=== PATIENT | female | born 1990 | race Caucasian/White ===

== ENCOUNTER 2017-11-20 20:08 | Emergency (ER) | payer OTHER, SELFPAY ==
[2017-11-20] MEDS ORDERED: NA CHLORIDE 0.9% 1,000 ML ONE (20:51)
[2017-11-20 20:59] LABS: Absolute Lymphocytes (CBC) 3.6 K/uL (0.7-4.9); Absolute Monocytes 0.8 K/uL (0.1-1.3); Absolute Neutrophil 11.7 K/uL (1.8-8.0); Basophils % 0.2 % (0-1.3); Eosinophils % 0.5 % (0-4.4); Hematocrit 40.7 % (36.0-45.0); Lymphocytes % 22.1 % (15.3-44.8); MCH 30.3 pg (27.0-35.0); MCV 87.3 fL (80-100); Monocytes % 4.8 % (3.3-12.3); RBC Red Blood Cell Count 4.66 M/uL (3.86-4.86)
[2017-11-20 21:07] LABS: BUN Blood Urea Nitrogen 9 mg/dL (6-20); Bicarbonate 26 mEq/L (21-31); Glucose Level 114 mg/dL (65-120); Potassium 3.5 mEq/L (3.6-5.0); Sodium Level 134 mEq/L (135-145)
--- NOTE | 2017-11-20 21:40 | RAD REPORT ---
EXAM DESCRIPTION: US - Transvaginal OB - 11/20/2017 9:25 pm CLINICAL HISTORY: Abdominal pain, abdominal cramping, history of positive COMPARISON: None. FINDINGS: Uterus measures 9.9 x 4.9 x 6.8 cm. No abnormality of the myometrium. No gestational sac o r sac remnant within the endometrial cavity. No hematoma, mass, polyp or other endometrial focal find ing. Both ovaries are identified and normal in size. No suspicious ovarian or adnexal finding. No free flu id. IMPRESSION: No intrauterine gestation and no focal abnormality within the endometrial cavity. No adnexal mass to suspect ectopic . Correlation can be made with serial beta HCG findings with follow up sonography performed if there is evidence for ongoing .
[2017-11-20] MEDS ORDERED: METHYLERGONOVINE 0.2 MG TAB PO ONE (22:01)
--- NOTE | 2017-11-20 22:04 | ER ---
Nurse's Notes [facility] Name: Raj Dean Age: 27 yrs Sex: Female : 1990 Arrival Date: 11/20/2017 Time: 20:09 Bed 7 Private MD: Juan M Nj P Diagnosis: Complete or unspecified spontaneous without complication Presentation: 11/20 20:31 Presenting complaint: Patient states: she is 11 weeks has been spotting a few bb days saw Dr Chopra today but now cramping is worse and she is bleeding large clots. Transition of care: patient was not received from another setting of care. Onset of symptoms was November 20, 2017. Initial Sepsis Screen: Does the patient meet any 2 criteria? No. Patient's initial sepsis screen is negative. Does the patient have a suspected source of infection? No. Patient's initial sepsis screen is negative. Care prior to arrival: None. 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 - Social history:: Smoking status: Patient/guardian denies using tobacco, Patient/guardian denies using alcohol, street drugs. Screenin:06 Abuse screen: Denies threats or abuse. Denies injuries from another. Nutritional lp1 screening: No deficits noted. Tuberculosis screening: No symptoms or risk factors identified. Fall Risk None identified. Assessment: 21:45 General: Appears uncomfortable, well developed, Behavior is anxious, crying. Pain: lp1 Complains of pain in suprapubic area Pain currently is 10 out of 10 on a pain scale. Quality of pain is described as crampy, Pain began gradually, Is intermittent, Noted to be crying, grimacing. Neuro: Level of Consciousness is awake, alert, obeys commands, Oriented to person, place, time, situation. Cardiovascular: Patient's skin is warm and dry. Respiratory: Airway is patent Respiratory effort is even, Respiratory pattern is regular, Breath sounds are clear bilaterally. GI: Abdomen is non-distended, Bowel sounds present X 4 quads. Abdomen is tender to palpation in suprapubic area Reports cramping. : Reports vaginal bleeding that is bright red, with clots, heavy flow. EENT: No signs and/or symptoms were reported regarding the EENT system. Derm: Skin is pink, warm \T\ dry. Musculoskeletal: Circulation, motion, and sensation intact. 22:30 Reassessment: Patient is alert, oriented x 3, equal unlabored respirations, skin lp1 warm/dry/pink. Patient states feeling better. Patient states symptoms have improved. Vital Signs: 20:33 BP 80 / 40; Pulse 112; Resp 20 S; Temp 98.6(O); Pulse Ox 100% on R/A; Weight 90.72 kg bb (R); Height 5 ft. 9 in. (175.26 cm) (R); Pain 8/10; 20:45 BP 106 / 72; Pulse 94; Resp 19; Pulse Ox 98% on R/A; Pain 10/10; lp1 22:00 BP 98 / 61; Pulse 79; Resp 18; Pulse Ox 100% on R/A; lp1 22:30 BP 130 / 53; Pulse 84; Resp 18; Pulse Ox 99% on R/A; Pain 2/10; lp1 20:33 Body Mass Index 29.53 (90.72 kg, 175.26 cm) bb ED Course: 20:09 Patient arrived in ED. am2 20:10 Juan M Nj MD is Private Physician. am2 20:32 Triage completed. bb 20:33 Arm band placed on Patient placed in an exam room, on a stretcher, on pulse oximetry. bb Family accompanied patient. 20:45 Patient has correct armband on for positive identification. Placed in gown. Bed in low lp1 position. Call light in reach. material reprocessing associate on. Pulse ox on. NIBP on. 20:45 Inserted saline lock: 20 gauge in right antecubital area, using aseptic technique. lp1 Blood collected. 20:49 Jose Eduardo Kidd MD is Attending Physician. 20:59 Linntete Deng FNP-C is [facility]. snw 21:05 Eboni Corbin, RN is Primary Nurse. lp1 21:25 US Transvaginal Ob In Process Unspecified. EDMS 21:25 Ultrasound completed. Patient tolerated well. cy 21:45 Assist provider with pelvic exam: Set up pelvic tray. Performed by Linnette Deng lp1 TERRY Patient tolerated well. 22:03 Juan M Nj MD is Referral Physician. snw 22:45 IV discontinued, No redness/swelling at site. Pressure dressing applied. lp1 Administered Medications: 20:50 Drug: NS 0.9% 1000 ml Route: IV; Rate: 1 bolus; Site: right antecubital; lp1 22:14 Follow up: IV Status: Completed infusion lp1 22:14 Drug: METHERgine 0.2 mg Route: PO; lp1 22:45 Follow up: Response: No adverse reaction lp1 Outcome: 22:04 Discharge ordered by . snw 23:01 Discharged to home via wheelchair, with family. lp1 23:01 Condition: good 23:01 Discharge instructions given to patient, Instructed on discharge instructions, follow up and referral plans. medication usage, Demonstrated understanding of instructions, follow-up care, medications, Prescriptions given X 1. 23:01 Patient left the ED. lp1 Signatures: Dispatcher [employer] EDFL Linnette Deng FNP-C FNP-Csnw Yolande Smart, JOSE GARCIA bb Eboni Corbin, RN RN lp1 Brigida Pantoja am2 Jose Eduardo Kidd MD MD gs Yong, Chheannith
--- NOTE | 2017-11-20 22:04 | EDPHYS ---
Physician Documentation [facility] Name: Raj Dean Age: 27 yrs Sex: Female : 1990 Arrival Date: 11/20/2017 Time: 20:09 Bed 7 Private MD: Juan M Nj P ED Physician Kidd Jose Eduardo HPI: 11/20 21:04 This 27 yrs old Female presents to ER via Wheelchair with complaints of snw Abdominal Cramping, Abdominal Pain, Vaginal Bleeding, + Preg <12wks. 21:04 The patient presents with vaginal bleeding that is heavy, with clots. Onset: The snw symptoms/episode began/occurred gradually, and became worse just prior to arrival. Associated signs and symptoms: Pertinent positives: cramping, vaginal bleeding. Severity of symptoms: At their worst the symptoms were moderate, severe. The patient has not experienced similar symptoms in the past. The patient has been recently seen by a physician: Dr. Nj earlier today. 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 - Social history:: Smoking status: Patient/guardian denies using tobacco, Patient/guardian denies using alcohol, street drugs. ROS: 21:03 Constitutional: Negative for fever, chills, and weight loss, Eyes: Negative for injury, snw pain, redness, and discharge, ENT: Negative for injury, pain, and discharge, Neck: Negative for injury, pain, and swelling, Cardiovascular: Negative for chest pain, palpitations, and edema, Respiratory: Negative for shortness of breath, cough, wheezing, and pleuritic chest pain, Abdomen/GI: Negative for abdominal pain, nausea, vomiting, diarrhea, and constipation, Back: Negative for injury and pain, MS/Extremity: Negative for injury and deformity, Skin: Negative for injury, rash, and discoloration, Neuro: Negative for headache, weakness, numbness, tingling, and seizure. 21:03 : Positive for vaginal bleeding, cramping, pt 11 wks . Started progesterone two days ago for spotting and low levels. . Exam: 20:59 Constitutional: This is a well developed, well nourished patient who is awake, alert, snw and in no acute distress. Head/Face: Normocephalic, atraumatic. Eyes: Pupils equal round and reactive to light, extra-ocular motions intact. Lids and lashes normal. Conjunctiva and sclera are non-icteric and not injected. Cornea within normal limits. Periorbital areas with no swelling, redness, or edema. ENT: Nares patent. No nasal discharge, no septal abnormalities noted. Tympanic membranes are normal and external auditory canals are clear. Oropharynx with no redness, swelling, or masses, exudates, or evidence of obstruction, uvula midline. Mucous membranes moist. Neck: Trachea midline, no thyromegaly or masses palpated, and no cervical lymphadenopathy. Supple, full range of motion without nuchal rigidity, or vertebral point tenderness. No Meningismus. Chest/axilla: Normal chest wall appearance and motion. Nontender with no deformity. No lesions are appreciated. 20:59 Respiratory: Lungs have equal breath sounds bilaterally, clear to auscultation and percussion. No rales, rhonchi or wheezes noted. No increased work of breathing, no retractions or nasal flaring. Abdomen/GI: Soft, non-tender, with normal bowel sounds. No distension or tympany. No guarding or rebound. No evidence of tenderness throughout. Back: No spinal tenderness. No costovertebral tenderness. Full range of motion. Pelvic Exam: Normal external genitalia. Speculum exam with open cervical os, bleeding noted. Severe cramping. Products of conception expressed. Bleeding slowed. Pt states pain resolved. Skin: Warm, dry with normal turgor. Normal color with no rashes, no lesions, and no evidence of cellulitis. MS/ Extremity: Pulses equal, no cyanosis. Neurovascular intact. Full, normal range of motion. Neuro: Awake and alert, GCS 15, oriented to person, place, time, and situation. Cranial nerves II-XII grossly intact. Motor strength 5/5 in all extremities. Sensory grossly intact. Cerebellar exam normal. Normal gait. 20:59 Cardiovascular: Rate: tachycardic. Vital Signs: 20:33 BP 80 / 40; Pulse 112; Resp 20 S; Temp 98.6(O); Pulse Ox 100% on R/A; Weight 90.72 kg bb (R); Height 5 ft. 9 in. (175.26 cm) (R); Pain 8/10; 20:45 BP 106 / 72; Pulse 94; Resp 19; Pulse Ox 98% on R/A; Pain 10/10; lp1 22:00 BP 98 / 61; Pulse 79; Resp 18; Pulse Ox 100% on R/A; lp1 22:30 BP 130 / 53; Pulse 84; Resp 18; Pulse Ox 99% on R/A; Pain 2/10; lp1 20:33 Body Mass Index 29.53 (90.72 kg, 175.26 cm) bb MDM: 20:59 Patient medically screened. snw 22:07 Data reviewed: vital signs, nurses notes. Data interpreted: Pulse oximetry: on room air snw is 98 %. Counseling: I had a detailed discussion with the patient and/or guardian regarding: the historical points, exam findings, and any diagnostic results supporting the discharge/admit diagnosis, lab results, radiology results, the need for outpatient follow up, to return to the emergency department if symptoms worsen or persist or if there are any questions or concerns that arise at home. Special discussion: Based on the patient's Hx, exam, and Dx evaluation, there is no indication for emergent surgery or inpatient Tx. It is understood by the patient/guardian that if the Sx's persist or worsen they need to return immediately for re-evaluation. Based on the history and exam findings, there is no indication for further emergent testing or inpatient evaluation. I discussed with the patient/guardian the need to see the OB Gyne specialist for further evaluation of the symptoms. 11/20 20:37 Order name: Quantitative Hcg; Complete Time: 21:47 snw 11/20 20:37 Order name: Basic Metabolic Panel; Complete Time: 21:47 snw 11/20 20:37 Order name: CBC with Diff; Complete Time: 21:01 snw 11/20 20:37 Order name: TS; Complete Time: 22:02 snw 11/20 21:02 Order name: US Transvaginal Ob; Complete Time: 21:47 snw 11/20 20:37 Order name: IV Saline Lock; Complete Time: 20:50 snw 11/20 20:37 Order name: Labs collected and sent; Complete Time: 20:50 snw 11/20 20:37 Order name: NPO; Complete Time: 20:50 snw Administered Medications: 20:50 Drug: NS 0.9% 1000 ml Route: IV; Rate: 1 bolus; Site: right antecubital; lp1 22:14 Follow up: IV Status: Completed infusion lp1 22:14 Drug: METHERgine 0.2 mg Route: PO; lp1 22:45 Follow up: Response: No adverse reaction lp1 Disposition: 11/21 03:02 Co-signature as Attending Physician, Jose Eduardo Kidd MD. Disposition: 11/20/17 22:04 Discharged to Home. Impression: Complete or unspecified spontaneous without complication. - Condition is Stable. - Discharge Instructions: Miscarriage. - Prescriptions for Methergine 0.2 mg Oral tablet - take 1 tablet by ORAL route every 6 hours; 4 tablet. - Medication Reconciliation Form, Thank You Letter, Antibiotic Education, Prescription Opioid Use form. - Follow up: Juan M Nj MD; When: as scheduled; Reason: Recheck today's complaints, Continuance of care, Re-evaluation by your physician. Follow up: Emergency Department; When: As needed; Reason: Worsening of condition. Signatures: Dispatcher [employer] EDMS Linnette Deng, LICENSED ARCHITECT-C LICENSED ARCHITECT-Csnw Yolande Smart RN RN bb Eboni Corbin RN RN 1 Jose Eduardo Kidd MD MD Corrections: (The following items were deleted from the chart) 11/20 21:06 20:37 Misc. Order ordered. [facility] lp1 22:14 20:37 Urine Dipstick-Ancillary ordered. snw lp1
[2017-11-20 23:10] VITALS: TEMP 98.6
[2017-11-20 23:13] VITALS: BP 130/53; O2SAT 99
== END 2017-11-20 23:01 | disposition home or self-care (01) ==
LOC: ER 20:08
DX: O03.9 Complete or unspecified spontaneous abortion without complication (principal)
CPT/HCPCS: 36415; 76817; 80048; 84702; 85025; 86850; 86900; 86901; 88305; 96360; 99285; J7030

== ENCOUNTER 2018-11-05 19:08 | Emergency (ER) | payer OTHER ==
--- NOTE | 2018-11-05 19:48 | ER ---
Nurse's Notes [facility] Name: Raj Dean Age: 28 yrs Sex: Female : 1990 Arrival Date: 11/05/2018 Time: 19:13 Bed 12 Private MD: Diagnosis: Obsessive-compulsive disorder;Insomnia Presentation: 11/05 19:40 Presenting complaint: Patient states: "I had a very bad panic attach. so I drove around [facility] today and nothing really is seeming to help.". Transition of care: patient was not received from another setting of care. Onset of symptoms was November 05, 2018. Risk Assessment: Do you want to hurt yourself or someone else? Patient reports no desire to harm self or others. Initial Sepsis Screen: Does the patient meet any 2 criteria? No. Patient's initial sepsis screen is negative. Does the patient have a suspected source of infection? No. Patient's initial sepsis screen is negative. Care prior to arrival: None. 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 - Social history:: Smoking status: Patient uses tobacco products, denies chronic smoking, but will smoke occasionally. - Ebola Screening: : Patient negative for fever greater than or equal to 101.5 degrees Fahrenheit, and additional compatible Ebola Virus Disease symptoms. Screenin:10 Abuse screen: Denies threats or abuse. Nutritional screening: No deficits noted. fc Tuberculosis screening: No symptoms or risk factors identified. Fall Risk None identified. Assessment: 20:00 General: Appears comfortable, obese, Behavior is calm, cooperative, appropriate for age. Pain: Denies pain. Neuro: Level of Consciousness is awake, alert, obeys commands, Oriented to person, place, time, situation, Appropriate for age Reports states that she is just very anxious. Cardiovascular: No deficits noted. Respiratory: No deficits noted. GI: No deficits noted. : No deficits noted. EENT: No deficits noted. Derm: Skin is pink, warm \\T\\ dry. Musculoskeletal: Circulation, motion, and sensation intact. Capillary refill < 3 seconds, Range of motion: intact in all extremities. Vital Signs: 19:43 BP 112 / 68; Pulse 72; Resp 18 S; Temp 99.6(TE); Pulse Ox 99% on R/A; Weight 90.72 kg jd3 (R); Height 5 ft. 9 in. (175.26 cm) (R); Pain 3/10; 19:43 Body Mass Index 29.53 (90.72 kg, 175.26 cm) jd3 ED Course: 19:13 Patient arrived in ED. am2 19:41 Triage completed. jd3 19:47 Arm band placed on Patient notified of wait time. jd3 19:51 Linnette Deng FNP-C is [facility]. snw 19:51 Wood Garrison MD is Attending Physician. snw 20:10 Patient has correct armband on for positive identification. Bed in low position. Call fc light in reach. 20:10 No provider procedures requiring assistance completed. Patient did not have IV access fc during this emergency room visit. Administered Medications: 20:02 Drug: Valium 5 mg Route: PO; fc 20:21 Follow up: Response: No adverse reaction; Marked relief of symptoms fc 20:02 Drug: Atarax 25 mg Route: PO; fc 20:20 Follow up: Response: No adverse reaction; Marked relief of symptoms fc Outcome: 19:48 Discharge ordered by . snw 20:12 Discharged to home ambulatory, with family. fc 20:12 Condition: good 20:12 Discharge instructions given to patient, family, Instructed on discharge instructions, follow up and referral plans. no drinking with medication, no driving heavy equipment, Demonstrated understanding of instructions, follow-up care, Prescriptions given X none. 20:21 Patient left the ED. fc Signatures: Linnette Deng FNP-C NOODLE MAKER-Vianey Lakhani RN RN Brigida Pantoja 2 Jake Olsen RN RN j
--- NOTE | 2018-11-05 19:49 | EDPHYS ---
Physician Documentation [facility] Name: Raj Dean Age: 28 yrs Sex: Female : 1990 Arrival Date: 11/05/2018 Time: 19:13 Bed 12 Private MD: ED Physician Wood Garrison HPI: 11/05 22:27 This 28 yrs old Female presents to ER via Ambulatory with complaints of panic snw attack hx of ocd. 22:27 The patient presents to the emergency department with anxiety, OCD history, her Sister snw committed suicide, pt tired of intrusive thoughts. Driving is a trigger for her and she drove back and forth from her home to run errands for her Son for about three hours. Pt has not been able to rest since that time.. Onset: The symptoms/episode began/occurred gradually, 2 month(s) ago, and became worse today. Associated signs and symptoms: Pertinent positives; nausea. Severity of symptoms: At their worst the symptoms were moderate severe. The patient has experienced similar episodes in the past. The patient has been recently seen by a physician:. will follow up with Psychiatrist, Dr. Bolanos tomorrow.. MUSEUM DOCENT: 19:43 LMP 11/05/2018 jd3 Historical: - Allergies: 19:43 No Known Allergies; jd3 - Home Meds: 19:43 Zoloft Oral [Active]; BuSpar Oral [Active]; jd3 - PMHx: 19:43 Anxiety; jd3 - PSHx: 19:43 None; jd3 - Immunization history:: Adult Immunizations up to date. - Social history:: Smoking status: Patient uses tobacco products, denies chronic smoking, but will smoke occasionally. - Ebola Screening: : Patient negative for fever greater than or equal to 101.5 degrees Fahrenheit, and additional compatible Ebola Virus Disease symptoms. ROS: 22:26 Constitutional: Negative for fever, chills, and weight loss, Eyes: Negative for injury, snw pain, redness, and discharge, ENT: Negative for injury, pain, and discharge, Neck: Negative for injury, pain, and swelling, Cardiovascular: Negative for chest pain, palpitations, and edema, Respiratory: Negative for shortness of breath, cough, wheezing, and pleuritic chest pain, Back: Negative for injury and pain, : Negative for injury, bleeding, discharge, and swelling, MS/Extremity: Negative for injury and deformity, Skin: Negative for injury, rash, and discoloration, Neuro: Negative for headache, weakness, numbness, tingling, and seizure. 22:26 Abdomen/GI: Positive for nausea. 22:26 Psych: Positive for anxiety, insomnia, intrusive OCD thoughts, Negative for drug dependence, alcohol dependence, auditory hallucinations, visual hallucinations, homicidal ideation, suicidal ideation. Exam: 22:22 Constitutional: This is a well developed, well nourished patient who is awake, alert, snw and in no acute distress. Head/Face: Normocephalic, atraumatic. Eyes: Pupils equal round and reactive to light, extra-ocular motions intact. Lids and lashes normal. Conjunctiva and sclera are non-icteric and not injected. Cornea within normal limits. Periorbital areas with no swelling, redness, or edema. ENT: Nares patent. No nasal discharge, no septal abnormalities noted. Tympanic membranes are normal and external auditory canals are clear. Oropharynx with no redness, swelling, or masses, exudates, or evidence of obstruction, uvula midline. Mucous membranes moist. Neck: Trachea midline, no thyromegaly or masses palpated, and no cervical lymphadenopathy. Supple, full range of motion without nuchal rigidity, or vertebral point tenderness. No Meningismus. Chest/axilla: Normal chest wall appearance and motion. Nontender with no deformity. No lesions are appreciated. Cardiovascular: Regular rate and rhythm with a normal S1 and S2. No gallops, murmurs, or rubs. Normal PMI, no JVD. No pulse deficits. Respiratory: Lungs have equal breath sounds bilaterally, clear to auscultation and percussion. No rales, rhonchi or wheezes noted. No increased work of breathing, no retractions or nasal flaring. Abdomen/GI: Soft, non-tender, with normal bowel sounds. No distension or tympany. No guarding or rebound. No evidence of tenderness throughout. Back: No spinal tenderness. No costovertebral tenderness. Full range of motion. Skin: Warm, dry with normal turgor. Normal color with no rashes, no lesions, and no evidence of cellulitis. MS/ Extremity: Pulses equal, no cyanosis. Neurovascular intact. Full, normal range of motion. Neuro: Awake and alert, GCS 15, oriented to person, place, time, and situation. Cranial nerves II-XII grossly intact. Motor strength 5/5 in all extremities. Sensory grossly intact. Cerebellar exam normal. Normal gait. 22:22 Psych: Behavior/mood is pleasant, cooperative, anxious, Affect is calm, Oriented to person, place, time, Judgement / Insight is normal. Delusions/hallucinations pt has intrusive thoughts and insomnia second to those thoughts but denies SI, HI. Pt's Mom will stay with her tonight. Pt began taking her zoloft one week ago but was stressed today with driving and has not been able to rest and get those intrusive thoughts to stop. Pt states she will f/u tomorrow with [facility] and states she has a safe environment and family support, just requests something to quiet her mind.. Vital Signs: 19:43 BP 112 / 68; Pulse 72; Resp 18 S; Temp 99.6(TE); Pulse Ox 99% on R/A; Weight 90.72 kg jd3 (R); Height 5 ft. 9 in. (175.26 cm) (R); Pain 3/10; 19:43 Body Mass Index 29.53 (90.72 kg, 175.26 cm) jd3 MDM: 19:48 Patient medically screened. snw 22:27 Data reviewed: vital signs, nurses notes. Counseling: I had a detailed discussion with snw the patient and/or guardian regarding: the historical points, exam findings, and any diagnostic results supporting the discharge/admit diagnosis, the need for outpatient follow up, to return to the emergency department if symptoms worsen or persist or if there are any questions or concerns that arise at home. Special discussion: Based on the history and exam findings, there is no indication for further emergent testing or inpatient evaluation. I discussed with the patient/guardian the need to see the primary care provider for further evaluation of the symptoms. I discussed with the patient/guardian the need to see the psychiatrist for further evaluation of the symptoms. Administered Medications: 20:02 Drug: Valium 5 mg Route: PO; fc 20:21 Follow up: Response: No adverse reaction; Marked relief of symptoms fc 20:02 Drug: Atarax 25 mg Route: PO; fc 20:20 Follow up: Response: No adverse reaction; Marked relief of symptoms Disposition: 11/06 08:53 Co-signature as Attending Physician, Wood Garrison MD I agree with the assessment and wa plan of care. Disposition: 11/05/18 19:48 Discharged to Home. Impression: Obsessive-compulsive disorder, Insomnia. - Condition is Stable. - Discharge Instructions: Insomnia, Obsessive-Compulsive Disorder. - Medication Reconciliation Form, Thank You Letter, Antibiotic Education, Prescription Opioid Use form. - Follow up: Emergency Department; When: As needed; Reason: Worsening of condition. Follow up: Private Physician; When: Tomorrow; Reason: Recheck today's complaints, Continuance of care, Re-evaluation by your physician. - Notes: Please call Dr. Bolanos in the morning for an appointment. At any time if you are feeling worse, return to ED immediately Signatures: Linnette Deng, ENVIRONMENTAL PROGRAM MANAGER-C ENVIRONMENTAL PROGRAM MANAGER-Csnw Vianey Sorenson RN RN fc Appiah, William, MD MD wa Davies, Jonathon, RN RN jd3 Corrections: (The following items were deleted from the chart) 11/05 20:21 19:48 11/05/2018 19:48 Discharged to Home. Impression: Obsessive-compulsive disorder; fc Insomnia. Condition is Stable. Forms are Medication Reconciliation Form, Thank You Letter, Antibiotic Education, Prescription Opioid Use. Follow up: Emergency Department; When: As needed; Reason: Worsening of condition. Follow up: Private Physician; When: Tomorrow; Reason: Recheck today's complaints, Continuance of care, Re-evaluation by your physician. snw
[2018-11-05] MEDS ORDERED: DIAZEPAM 5 MG TABLET ONE (20:07)
[2018-11-05] MEDS ORDERED: hydrOXYzine HCl 25 MG TAB ONE (20:07)
[2018-11-05 21:18] VITALS: BP 112/68; TEMP 99.6; O2SAT 99
== END 2018-11-05 20:21 | disposition home or self-care (01) ==
LOC: ER 19:08
DX: F42.9 Obsessive-compulsive disorder, unspecified (principal); G47.00 Insomnia, unspecified
CPT/HCPCS: 99283